=== PATIENT | male | born 1995 | race Caucasian/White ===

== ENCOUNTER 2019-03-29 00:28 | Emergency (ER) | payer BC ==
[~2019-03-29] VITALS: Ht 188 cm; Wt 93.0 kg
[2019-03-29] MEDS ORDERED: CIPROFLOXIN HC2.5 M1 OPHTHALMIC (01:41)
[2019-03-29 02:03] VITALS: BP 140/87
== END 2019-03-29 02:03 | disposition home or self-care (01) ==
LOC: M.ERS 00:28
DX: H10.9 Unspecified conjunctivitis (principal); K21.9 Gastro-esophageal reflux disease without esophagitis; K58.9 Irritable bowel syndrome, unspecified; Z88.1 Allergy status to other antibiotic agents; Z88.8 Allergy status to other drugs, medicaments and biological substances

== ENCOUNTER 2019-04-08 01:46 | Emergency (ER) | payer BC ==
[~2019-04-08] VITALS: Ht 188 cm; Wt 90.7 kg
[~2019-04-08 01:46] MED LIST: CIPROFLOXIN HC2.5 M1 OPHTHALMIC
[2019-04-08] MEDS ORDERED: TYLENOL WITH CO1 TA1 PO (02:42)
[2019-04-08 02:53] VITALS: BP 120/73
== END 2019-04-08 02:53 | disposition home or self-care (01) ==
LOC: M.ERS 01:46
DX: J06.9 Acute upper respiratory infection, unspecified (principal); J45.909 Unspecified asthma, uncomplicated; K21.9 Gastro-esophageal reflux disease without esophagitis; K58.9 Irritable bowel syndrome, unspecified; F17.200 Nicotine dependence, unspecified, uncomplicated; Z91.048 Other nonmedicinal substance allergy status; Z88.1 Allergy status to other antibiotic agents

== ENCOUNTER 2019-07-06 19:48 | Emergency (ER) | payer BC ==
[~2019-07-06] VITALS: Ht 185.4 cm; Wt 86.2 kg
[~2019-07-06 19:48] MED LIST changes: +TYLENOL WITH CO1 TA1 PO
[2019-07-06 20:08] VITALS: BP 123/69
[2019-07-06 20:26] LABS: URINE BILIRUBIN NEGATIVE (Negative); URINE BLOOD NEGATIVE (Negative); URINE CLARITY CLEAR; URINE COLOR YELLOW; URINE GLUCOSE-RANDOM NEGATIVE (Negative); URINE KETONES NEGATIVE (Negative); URINE LEUKOCYTES-REFLEX NEGATIVE (Negative); URINE NITRITE-REFLEX NEGATIVE (Negative); URINE PROTEIN NEGATIVE (Negative); URINE SPECIFIC GRAVITY 1.025 (1.005-1.030); URINE UROBILINOGEN 0.2 E.U./dl (0.2-1.0)
== END 2019-07-06 21:17 | disposition home or self-care (01) ==
LOC: M.ERS 19:48
PROVIDERS: Nurse Practitioner Family
DX: R30.0 Dysuria (principal); Z20.2 Contact with and (suspected) exposure to infections with a predominantly sexual mode of transmission; K21.9 Gastro-esophageal reflux disease without esophagitis; J45.909 Unspecified asthma, uncomplicated; F12.10 Cannabis abuse, uncomplicated; Z88.1 Allergy status to other antibiotic agents; Z88.8 Allergy status to other drugs, medicaments and biological substances

== ENCOUNTER 2019-09-29 23:22 | Emergency (ER) | payer BC ==
[~2019-09-29] VITALS: Ht 188 cm; Wt 99.8 kg
[2019-09-29 23:46] LABS: URINE BILIRUBIN NEGATIVE (Negative); URINE BLOOD NEGATIVE (Negative); URINE CLARITY CLEAR; URINE COLOR YELLOW; URINE GLUCOSE-RANDOM NEGATIVE (Negative); URINE KETONES NEGATIVE (Negative); URINE LEUKOCYTES-REFLEX NEGATIVE (Negative); URINE NITRITE-REFLEX NEGATIVE (Negative); URINE PROTEIN NEGATIVE (Negative); URINE SPECIFIC GRAVITY 1.025 (1.005-1.030); URINE UROBILINOGEN 0.2 E.U./dl (0.2-1.0)
[2019-09-30 01:05] VITALS: BP 137/91
== END 2019-09-30 01:05 | disposition home or self-care (01) ==
LOC: M.ERS 23:22
PROVIDERS: Emergency Medicine
DX: N34.2 Other urethritis (principal); K21.9 Gastro-esophageal reflux disease without esophagitis; J45.909 Unspecified asthma, uncomplicated; K58.9 Irritable bowel syndrome, unspecified; Z88.1 Allergy status to other antibiotic agents; Z88.8 Allergy status to other drugs, medicaments and biological substances

== ENCOUNTER 2020-03-01 18:32 | Emergency (ER) | payer OTHER ==
[~2020-03-01] VITALS: Ht 190.5 cm; Wt 99.8 kg
[2020-03-01 19:49] LABS: URINE BILIRUBIN NEGATIVE (Negative); URINE BLOOD NEGATIVE (Negative); URINE CLARITY CLEAR; URINE COLOR YELLOW; URINE GLUCOSE-RANDOM NEGATIVE (Negative); URINE KETONES NEGATIVE (Negative); URINE LEUKOCYTES-REFLEX NEGATIVE (Negative); URINE NITRITE-REFLEX NEGATIVE (Negative); URINE PROTEIN NEGATIVE (Negative); URINE SPECIFIC GRAVITY >= 1.030 (1.005-1.030); URINE UROBILINOGEN 0.2 E.U./dl (0.2-1.0)
[2020-03-01 21:12] VITALS: BP 145/92
== END 2020-03-01 21:12 | disposition home or self-care (01) ==
LOC: M.ERS 18:32
PROVIDERS: Nurse Practitioner Family
DX: N34.2 Other urethritis (principal); K21.9 Gastro-esophageal reflux disease without esophagitis; K58.9 Irritable bowel syndrome, unspecified; J45.909 Unspecified asthma, uncomplicated; Z91.048 Other nonmedicinal substance allergy status; Z88.8 Allergy status to other drugs, medicaments and biological substances

== ENCOUNTER 2020-09-19 13:52 | Emergency (ER) | payer BC ==
[~2020-09-19] VITALS: Ht 188 cm; Wt 97.5 kg
[2020-09-19 14:04] VITALS: BP 122/84
[2020-09-19] MEDS ORDERED: VITAMIN D310 MC2 PO (14:09)
[2020-09-19] MEDS ORDERED: GLUCOSAMINE CO1 EAC4 PO (14:09)
== END 2020-09-19 14:27 | disposition home or self-care (01) ==
LOC: M.ERS 13:52
DX: F32.9 Major depressive disorder, single episode, unspecified (principal); K21.9 Gastro-esophageal reflux disease without esophagitis; J45.909 Unspecified asthma, uncomplicated; F17.210 Nicotine dependence, cigarettes, uncomplicated; Z79.899 Other long term (current) drug therapy; Z91.048 Other nonmedicinal substance allergy status; Z88.1 Allergy status to other antibiotic agents

== ENCOUNTER 2020-12-19 22:17 | Emergency (ER) | payer BC ==
[~2020-12-19] VITALS: Ht 188 cm; Wt 104.3 kg
[~2020-12-19 22:17] MED LIST changes: +GLUCOSAMINE CO1 EAC4 PO; +VITAMIN D310 MC2 PO
[2020-12-19] MEDS ORDERED: BACTRIM 400-801 EACH PO (22:35)
[2020-12-20 02:27] VITALS: BP 129/85
== END 2020-12-20 02:27 | disposition home or self-care (01) ==
LOC: M.ERS 22:17
DX: L02.413 Cutaneous abscess of right upper limb (principal); K58.9 Irritable bowel syndrome, unspecified; K21.9 Gastro-esophageal reflux disease without esophagitis; J45.909 Unspecified asthma, uncomplicated; Z88.1 Allergy status to other antibiotic agents

== ENCOUNTER 2020-12-23 14:58 | Inpatient (IN) | payer BC ==
[~2020-12-23] VITALS: Ht 188 cm; Wt 106.6 kg
[~2020-12-23 14:58] MED LIST changes: +BACTRIM 400-801 EACH PO
[2020-12-23 15:15] VITALS: BP 128/81
[2020-12-23 15:41] LABS: ABSOLUTE BASOPHILS 0.1 thou/uL (0.0-0.2); ABSOLUTE EOSINOPHILS 0.1 thou/uL (0.0-0.7); ABSOLUTE LYMPHOCYTES 2.1 thou/uL (0.8-5.3); ABSOLUTE MONOCYTES 1.3 thou/uL (0.0-1.2); ABSOLUTE NEUTROPHILS 5.4 thou/uL (1.6-8.1); BASOPHILS 0.8 %; EOSINOPHILS 0.9 %; HEMATOCRIT 43.1 % (42.0-52.0); HEMOGLOBIN 14.9 gm/dL (14.0-18.0); LYMPHOCYTES 23.6 %; MCH 31.1 pg (26.0-34.0); MCHC 34.6 g/dL (28.0-37.0); MCV 89.8 fL (80.0-100.0); MONOCYTES 14.7 %; MPV 6.7 fl. (7.2-11.1); NUCLEATED RBCS 0 /100WBC; PLATELET COUNT* 225 thou/uL (150-400); RDW-CV 12.1 % (10.5-14.5); WBC 9.1 thou/uL (4.0-11.0)
[2020-12-23 16:02] LABS: CALCIUM 8.4 mg/dL (8.5-10.1); POTASSIUM 3.9 mmol/L (3.5-5.1)
[2020-12-23 16:06] LABS: ALBUMIN 3.9 g/dL (3.4-5.0); TOTAL BILIRUBIN 0.3 mg/dL (<0.1-1.0); TOTAL PROTEIN 7.7 g/dL (6.4-8.2)
[2020-12-23 16:56] LABS: URINE BILIRUBIN NEGATIVE (Negative); URINE BLOOD NEGATIVE (Negative); URINE CLARITY CLEAR; URINE COLOR YELLOW; URINE GLUCOSE-RANDOM NEGATIVE (Negative); URINE KETONES NEGATIVE (Negative); URINE LEUKOCYTES-REFLEX NEGATIVE (Negative); URINE NITRITE-REFLEX NEGATIVE (Negative); URINE PROTEIN NEGATIVE (Negative); URINE SPECIFIC GRAVITY >= 1.030 (1.005-1.030); URINE UROBILINOGEN 0.2 E.U./dl (0.2-1.0)
[2020-12-23 17:49] VITALS: BP 125/70
[2020-12-23 18:05] VITALS: BP 137/91
[2020-12-23 22:43] VITALS: BP 128/76
[2020-12-24 08:10] VITALS: BP 112/66
[2020-12-24 17:16] VITALS: BP 113/77
[2020-12-24 20:00] VITALS: BP 122/74
[2020-12-25 03:37] LABS: CALCIUM 8.3 mg/dL (8.5-10.1); CREATININE 0.9 mg/dL (0.6-1.3)
[2020-12-25 03:57] LABS: HEMATOCRIT 40.3 % (42.0-52.0); MCHC 34.6 g/dL (28.0-37.0); MCV 89.6 fL (80.0-100.0); RBC 4.5 mil/uL (4.50-6.00); RDW-CV 12.4 % (10.5-14.5); WBC 5.8 thou/uL (4.0-11.0)
[2020-12-25 08:00] VITALS: BP 127/82
[2020-12-25] MEDS ORDERED: AUGMENTIN 875-1 EACH PO (08:28)
[2020-12-25 09:26] VITALS: BP 127/82
== END 2020-12-25 10:15 | disposition home or self-care (01) | DRG 603 ==
LOC: M.ERS 14:58 → M.TBA-ER 15:31 → M.ORTHSURG 18:21
PROVIDERS: Physician Assistant; ADMIT Internal Medicine; ATTEND Internal Medicine
PROC: 0H97XZZ Drainage of Abdomen Skin, External Approach (ICD-10-PCS; principal; 2020-12-23)
DX: L03.311 Cellulitis of abdominal wall (principal); K21.9 Gastro-esophageal reflux disease without esophagitis; L02.211 Cutaneous abscess of abdominal wall; K58.9 Irritable bowel syndrome, unspecified; F32.9 Major depressive disorder, single episode, unspecified; J45.909 Unspecified asthma, uncomplicated; Z79.899 Other long term (current) drug therapy; Z88.1 Allergy status to other antibiotic agents; Z91.09 Other allergy status, other than to drugs and biological substances; Z23 Encounter for immunization